=== PATIENT | female | born 1975 ===

== ENCOUNTER 2025-01-19 05:17 | Day surgery (SDC) | payer OTHER ==
[~2025-01-19 05:17] MED LIST: SEMAGLUTID0.5 MG/0.1; SYNTHROID50 MCG PO
[2025-01-19] MEDS ORDERED: POVIDONE-IODINE 118 ML BOTT TOP ONE (07:20)
[2025-01-19] MEDS ORDERED: KETOROLAC TROMETHAMINE 30 MG VIAL IV STA (09:02)
== END 2025-01-19 10:55 | disposition home or self-care (01) ==
LOC: CIR.AMB 05:17
PROVIDERS: ATTEND Obstetrics & Gynecology
DX: N88.2 Stricture and stenosis of cervix uteri (principal); N93.8 Other specified abnormal uterine and vaginal bleeding; N84.0 Polyp of corpus uteri